=== PATIENT | female | born 1935 | race Caucasian/White ===

== ENCOUNTER 2020-03-30 14:44 | Day surgery (SDC) | payer MEDICARE, MEDICAID ==
[2020-03-25 11:27] LABS: BASOPHILS % (AUTO) 0.6 % (0-1); EOSINOPHILS # (AUTO) 0.2 X10'3 (0-0.9); EOSINOPHILS % (AUTO) 2.4 % (0-6); HEMATOCRIT 35.5 % (35.0-45.0); HEMOGLOBIN 11.7 g/dl (12.0-16.0); LYMPHOCYTES # (AUTO) 1.9 X10'3 (1.1-4.8); LYMPHOCYTES % (AUTO) 23.6 % (21-51); MEAN CORPUSCULAR HEMOGLOBIN 25.8 PG (27.0-31.0); MEAN CORPUSCULAR HGB CONC 32.8 g/dL (33.0-36.5); MEAN CORPUSCULAR VOLUME 78.7 FL (78-98); MEAN PLATELET VOLUME 7.8 FL (7.4-10.4); MONOCYTES # (AUTO) 0.5 X10'3 (0-0.9); MONOCYTES % (AUTO) 6.6 % (2-12); NEUTROPHILS # (AUTO) 5.5 X10'3 (1.8-7.7); NEUTROPHILS % (AUTO) 66.8 % (42-75); PLATELET COUNT 322 X10'3 (140-440); RED BLOOD COUNT 4.52 X10'6 (4.20-5.60); RED CELL DISTRIBUTION WIDTH 16.1 % (11.5-14.5); WHITE BLOOD COUNT 8.2 X10'3 (4.5-11.0)
[2020-03-25 11:34] LABS: ANION GAP 8 (8-16); BLOOD UREA NITROGEN 15 MG/DL (7-18); BUN/CREATININE RATIO 18.8 (6.6-38.0); CALCIUM 10.6 MG/DL (8.5-10.1); CHLORIDE 101 MMOL/L (99-107); GLUCOSE 166 MG/DL (70-104); POTASSIUM 3.5 MMOL/L (3.5-5.1); SODIUM 138 MMOL/L (135-145); eGFR 68 ML/MIN
[2020-03-25 11:38] LABS: PARTIAL THROMBOPLASTIN TIME 26 SECONDS (22-32)
[~2020-03-30] VITALS: Ht 160 cm; Wt 79.0 kg
[2020-03-30] VITALS (7 sets, daily range): BP systolic 117–159; BP diastolic 59–89
[~2020-03-30 14:44] MED LIST: ACET-75 PO; AMLO2.5T2 PO; ASPI-611 PO; CALC1TAB PO; CHOL10002 PO; CYAN-51 PO; HYDR25TA4 PO; LOSA25TA96 PO; MECL-184 PO; METF-900 PO; NAPR-1166 PO; PRAV20TA4 PO
[2020-03-30] MEDS ORDERED: diphenhydrAMINE 25mg capsule PO PRN (15:15)
[2020-03-30] MEDS ORDERED: LORazepam 0.5 MG tablet PO PRN (15:15)
[2020-03-30] MEDS ORDERED: normal saline 1,000 ML IV SCH (15:15)
[2020-03-30] MEDS ORDERED: NAPR220T67 PO (15:43)
[2020-03-30] MEDS ORDERED: LORA-660 PO (15:45)
[2020-03-30] MEDS ORDERED: CARV3.12 PO (15:45)
[2020-03-30] MEDS ORDERED: NITR0.4T51 SL (15:46)
[2020-03-30] MEDS ORDERED: OSC500T PO (15:47)
[2020-03-30] MEDS ORDERED: midazolam 2 mg/2 ml injection ONE (16:26)
[2020-03-30] MEDS ORDERED: LIDOcaine 1% (10mg/ml)w/preservative injection 20ml MDV ONE (16:26)
[2020-03-30] MEDS ORDERED: iohexol 350MG/ML 100ml bottle IV ONE (16:26)
[2020-03-30] MEDS ORDERED: fentaNYL/PF 50MCG/1 ML 2ML syringe ONE (16:26)
[2020-03-30] MEDS ORDERED: verapamil 2.5 mg/ml inj IV ONE (16:38)
[2020-03-30] MEDS ORDERED: heparin 1,000unit/ml 10ml vial 10 ML ONE (16:38)
[2020-03-30] MEDS ORDERED: nitroGLYCERIN-Tridil 50MG/D5W 250 ML IV ONE (16:39)
[2020-03-30] MEDS ORDERED: proCHLORperazine 10 MG/2 ml inj IV PRN (18:25)
[2020-03-30] MEDS ORDERED: HYDROcodone/acetaminophen 10/325mg tab PO PRN (18:25)
[2020-03-30] MEDS ORDERED: nitroGLYCERIN 0.4mg SUBLingual tab SL PRN (18:25)
[2020-03-30] MEDS ORDERED: OXAZEpam 15mg capsule PO PRN (18:25)
[2020-03-30] MEDS ORDERED: ondansetron/PF 4mg/2ml inj IV PRN (18:25)
[2020-03-30] MEDS ORDERED: HYDROcodone/acetaminophen 5mg/325mg tablet PO PRN (18:25)
== END 2020-03-30 19:25 | disposition home or self-care (01) ==
LOC: SSTAY O 14:44
PROVIDERS: ATTEND Student in an Organized Health Care Education/Training Program
DX: R94.39 Abnormal result of other cardiovascular function study (principal); I25.10 Atherosclerotic heart disease of native coronary artery without angina pectoris; E78.5 Hyperlipidemia, unspecified; E11.22 Type 2 diabetes mellitus with diabetic chronic kidney disease; I12.9 Hypertensive chronic kidney disease with stage 1 through stage 4 chronic kidney disease, or unspecified chronic kidney disease; N18.9 Chronic kidney disease, unspecified; I34.0 Nonrheumatic mitral (valve) insufficiency; E11.21 Type 2 diabetes mellitus with diabetic nephropathy; E11.40 Type 2 diabetes mellitus with diabetic neuropathy, unspecified; M81.0 Age-related osteoporosis without current pathological fracture; D50.9 Iron deficiency anemia, unspecified; Z79.01 Long term (current) use of anticoagulants; Z87.891 Personal history of nicotine dependence; Z79.899 Other long term (current) drug therapy; Z79.82 Long term (current) use of aspirin; Z79.84 Long term (current) use of oral hypoglycemic drugs; Z85.3 Personal history of malignant neoplasm of breast; Z88.8 Allergy status to other drugs, medicaments and biological substances; Z91.011 Allergy to milk products
CPT/HCPCS: 36415; 80048; 82948; 85025; 85610; 85730; 93005; 93458; 99152; 99153; C1760; C1769; C1894; J1644; J2001; J2250; J3010; J7030; Q0163; Q9967; A4620; A5120; A6258; J3490